=== PATIENT | male | born 1985 | race American Indian/Alaskan Native ===

== ENCOUNTER 2021-02-28 11:51 | Emergency (ER) | payer SELFPAY ==
[2021-02-28] MEDS ORDERED: dexAMETHasone 4 MG/ML VIAL IM STA (16:16)
--- NOTE | 2021-02-28 16:21 | Emergency Department Report ---
ED General Adult HPI - General Chief complaint: Extremity Injury, Lower Stated complaint: FOOT INJURY Time Seen by Provider: 02/28/21 14:48 Source: patient Mode of arrival: Ambulatory Limitations: Physical Limitation - History of Present Illness Initial comments: 35-year-old -[place] male patient presents with complaints of sudden onset of left foot/great toe pain upon waking this morning. He reports he had 1 similar episode 1 year ago. He denies being diagnosed with gout. Patient admits to heavy alcohol intake in consumption of seafood in the days prior to the onset of his symptoms. He denies any past medical history including diabetes. He also denies any IV drug use or penetrating injuries to the foot, fever/chills/sweats, numbness/tingling/weakness in his foot/ankle, or difficulty moving the foot and toes. Patient rates his current pain as a 9/10 in severity. He reports he was last checked for diabetes 2 months ago and his glucose levels were normal Severity scale (0 -10): 10 - Related Data Previous Rx's Medication Instructions Recorded Last Taken Type Naproxen 500 mg PO BID PRN #20 tablet 02/28/21 Unknown Rx Prednisone [predniSONE 10 mg 10 mg PO .TAPER #1 tab.ds.pk 02/28/21 Unknown Rx (6-Day Pack, 21 Tabs)] Allergies Allergy/AdvReac Type Severity Reaction Status Date / Time No Known Allergies Allergy Verified 02/28/21 16:10 ED Review of Systems ROS: Stated complaint: FOOT INJURY Other details as noted in HPI Constitutional: denies: chills, fever, malaise ENT: denies: throat pain Respiratory: denies: cough Musculoskeletal: joint swelling, arthralgia Skin: change in color. denies: rash Neurological: denies: numbness, paresthesias Hematological/Lymphatic: denies: swollen glands ED Past Medical Hx - Medications Home Medications: Home Medications Medication Instructions Recorded Confirmed Last Taken Type Naproxen 500 mg PO BID PRN #20 tablet 02/28/21 Unknown Rx Prednisone [predniSONE 10 mg 10 mg PO .TAPER #1 tab.ds.pk 02/28/21 Unknown Rx (6-Day Pack, 21 Tabs)] ED Physical Exam - General Limitations: Physical Limitation General appearance: alert, in no apparent distress, obese - Head Head exam: Present: atraumatic, normocephalic - Eye Eye exam: Present: normal appearance - Respiratory Respiratory exam: Absent: respiratory distress - Cardiovascular Cardiovascular Exam: Present: regular rate - Extremities Exam Extremities exam: Present: joint swelling (Mild to moderate swelling noted to the left medial foot about the first MCP joint with significant tenderness to palpation of the MCP joint and mild erythema; no cellulitic changes noted; pedal pulses normal; patient has full range of motion of the toes and foot) - Neurological Exam Neurological exam: Present: alert, oriented X3 - Psychiatric Psychiatric exam: Present: normal affect, normal mood - Skin Skin exam: Present: warm, dry, intact. Absent: rash ED Course Vital Signs 02/28/21 14:44 Temperature 98.5 F Pulse Rate 76 Respiratory 20 Rate Blood Pressure 129/86 [Right] O2 Sat by Pulse 95 Oximetry ED Medical Decision Making - Medical Decision Making 35-year-old -[place] male patient presents with complaints of sudden onset of left foot/great toe pain upon waking this morning. He reports he had 1 similar episode 1 year ago. He denies being diagnosed with gout. Patient admits to heavy alcohol intake in consumption of seafood in the days prior to the onset of his symptoms. He denies any past medical history including diabetes. He also denies any IV drug use or penetrating injuries to the foot, fever/chills/sweats, numbness/tingling/weakness in his foot/ankle, or difficulty moving the foot and toes. Patient rates his current pain as a 9/10 in severity. He reports he was last checked for diabetes 2 months ago and his glucose levels were normal History and physical appear to be consistent with gout. Patient given Decadron and Toradol here in ED and will discharge home with prednisone Dosepak and naproxen. Recommend follow-up with primary care or orthopedics for further evaluation within 1 to 2 weeks. Patient is well-appearing, his vitals are within normal limits, he is stable for discharge home. Strict return precautions were discussed in detail with patient who verbalizes understanding Critical care attestation.: If time is entered above; I have spent that time in minutes in the direct care of this critically ill patient, excluding procedure time. ED Disposition Clinical Impression: Gout attack Disposition: 01 HOME / SELF CARE / HOMELESS Is pt being admited?: No Condition: Stable Instructions: Low-Purine Eating Plan Additional Instructions: What is gout? Gout is a form of arthritis. It can cause pain and swelling in the joints. At first, it tends to affect only 1 joint most frequently the big toe. It happens in people who have too much uric acid in the blood. Uric acid is a chemical that is produced when the body breaks down certain foods. Uric acid can form sharp needle-like crystals that build up in the joints and cause pain. Uric acid crystals can also form inside the tubes that carry urine from the kidneys to the bladder. These crystals can turn into "kidney stones" that can cause pain and problems with the flow of urine. What are the symptoms of gout? People with gout get sudden "flares" or attacks of severe pain, most often the big toe, ankle, or knee. Often the joint also turns red and swells. Usually, only 1 joint is affected, but some people have pain in more than 1 joint. Gout flares tend to happen more often during the night. The pain from gout can be extreme. The pain and swelling are worst at the beginning of a gout flare. The symptoms then get better within a few days to weeks. It is not clear how the body "turns off" a gout flare. Is there a test for gout? Yes. To test you for gout, your doctor or nurse can take a sample of fluid from the joint that is in pain. If they find typical gout crystals in the fluid, then you have gout. Even without checking fluid from a joint, the doctor or nurse might still strongly suspect gout if: ?You have had pain and swelling in 1 joint, especially the joint at the base of the big toe ?Your symptoms completely go away between flares, at least when you first start having them ?Your blood tests show high levels of uric acid How is gout treated? There are a few medicines that can reduce the pain and swelling caused by gout. When you find one that works for you, make sure to keep it on hand all the time. That way you can take it as soon you feel a flare starting. Gout medicines work best if you take them as soon as symptoms start. The medicines used to treat gout flares include: ?NSAIDs This is a large group of medicines that includes ibuprofen (sample bra nd names: Advil, Motrin) and indomethacin (brand name: Indocin). NSAIDs might not be safe for people with kidney or liver disease, or for people who have bleeding problems. ?Colchicine This medicine helps with gout but it can also cause diarrhea, nausea, vomiting, and stomach pain. ?Steroids Steroids can reduce swelling and pain. These steroids are not the kind that athletes take to build up muscle. Steroids can be taken as pills or as shots. Are there medicines to prevent gout flares? Yes, there are medicines that can reduce the chances of having future gout fl oscar. Most people who have repeated or severe flares of gout need to take these medicines. In general, they all work by reducing the amount of uric acid in the blood. Examples of these medicines include allopurinol (brand names: Aloprim, Zyloprim), febuxostat (brand name: Uloric), and probenecid. People with severe gout can also get a medicine called pegloticase (brand name: Krystexxa), which is given through a vein. This medicine can cause an allergic reaction in some people. If you take one of the medicines to prevent gout, your doctor or nurse will want to make sure you use it safely. They might also want to check that your uric acid level gets low enough to dissolve the gout crystals. Allopurinol, febuxostat, and probenecid can actually increase gout flares when you first start taking them. To prevent these flares, your doctor or nurse might suggest that you take low doses of colchicine when you start the medicines. This will give the gout crystals time to dissolve, and that will put a stop to the flares over time. If you do have a gout flare, it's important to keep taking your daily medicines normally. Your doctor will check your uric acid levels regularly. This is to make sure the medicines are working and you are taking the right dose. Can I do anything on my own to prevent gout flares? Yes. If you are overweight, losing weight can help relieve gout. It's not clear that following a specific diet plan will help with gout symptoms. But eating a balanced diet can help improve your overall health. It can also help you lose weight, if you are overweight. In general, a healthy diet includes plenty of fruits, vegetables, whole grains, and low-fat dairy products. It's also important to drink plenty of water, and try not to get dehydrated. You should limit sugary drinks and alcohol, which can make gout flares worse. Some people with gout also have other health problems, such as heart disease, high blood pressure, kidney disease, or obesity. If you have any of these issues, it's important to work with your doctor to manage them. This can help improve your overall health and might also help with your gout. More on this topic Prescriptions: Naproxen 500 mg PO BID PRN #20 tablet PRN Reason: pain Prednisone [predniSONE 10 mg (6-Day Pack, 21 Tabs)] 10 mg PO .TAPER #1 tab.ds.pk Referrals: PRIMARY CARE, [Primary Care Provider] - 3-5 Days [facility] [Provider Group] - 3-5 Days [facility] [Provider Group] - 3-5 Days Forms: Work/School Release Form(ED)
[2021-02-28] MEDS ORDERED: KETOROLAC 60 MG/2 ML INJ IM ONE (16:50)
[2021-02-28 17:01] VITALS: BP 130/84
== END 2021-02-28 17:01 | disposition home or self-care (01) ==
LOC: ED 11:51
DX: M10.9 Gout, unspecified (principal)
CPT/HCPCS: 96372; 99282; J1100; J1885